=== PATIENT | male | born 1930 | race Two or more races ===

== ENCOUNTER 2018-04-13 06:24 | Inpatient (IN) | payer MEDICARE, OTHER ==
[~2018-04-13] VITALS: Ht 170.2 cm; Wt 81.3 kg
[~2018-04-13 06:24] MED LIST: CALCIUM600 MG PO; DILTIAZEM 24HR180 M1 PO; GLIMEPIRIDE4 MG PO; LASIX20 MG PO; LOSARTAN POTAS100 MG PO; METFORMIN HCL1000 MG PO; METOPROLOL SUC100 MG PO; OMEPRAZOLE20 MG PO; PIOGLITAZONE HC45 MG PO; SIMVASTATIN40 MG PO; SULFAMETHOXAZO1 EAC1 PO; TYLENOL325 MG PO; VITAMIN D1000 UNIT PO
[2018-04-13] MEDS ORDERED: LANTUS100 UNITS/ SUB-Q (07:12)
--- NOTE | 2018-04-13 11:56 | NUR ---
PT ADMITTED AND WILL REMAIN AT THE BEDSIDE, BLACKMON CATHETER PLACED BY SN KLEIN, WITH PROPULSION SYSTEMS ENGINEER AT THE BEDSIDE, 160MLS A CLOUDY YELLOW IN COLOR URINE RETURNED. LUNCH ORDER AND RECORDS MANAGER TRAY PROVIDED.
--- NOTE | 2018-04-13 13:34 | NUR ---
PT REMAINS THE BEDSIDE, PT APPEARS TO BE TRYING TO TAKE A NAP AT THIS TIME. URINE IS YELLOW AND CLOUDY IN APPERANCE.
--- NOTE | 2018-04-13 16:30 | NUR ---
PT UP TO THE BEDSIDE COMMODE WITH NO RESULTS OF A BM AT THIS TIME, PT DID WELL WITH THIS ACTIVITY. BACK TO BED.
--- NOTE | 2018-04-13 17:29 | NUR ---
PT HAS LOW GRADE FEVER AT THIS TIME, TYLENOL 500MG PO GIVEN AT THIS TIME. PT IS HAVING INCREASED CONFUSION AND YOU CAN HEAR WHEEZING WHEN STANDING NEXT TO HIM
--- NOTE | 2018-04-13 18:54 | NUR ---
PT REPOSITIONED UP INTO THE BED AT THIS TIME. REMAINS AT THE BEDSIDE.
--- NOTE | 2018-04-13 19:30 | NUR ---
FINISHED GETTING REPORT FROM AM NURSES. PATIENT RESTING QUIETLY, PULLED UP IN BED, PATIENT DENIES PAIN, AT BEDSIDE.
--- NOTE | 2018-04-13 21:56 | NUR ---
2030 WAS CALLED THE PAST 2 HOURS URINE HAD DROPPED BELOW 40MLS/HR. ORDERS WERE GIVEN FOR A 500ML IV BOLUS OF LR AND THEN TO INCREASE THE REGULAR RATE OF THE LR TO 125MLS/HR. ALL THIS HAS BEEN DONE.WATER OFFERED TO PATIENT AND SPOUSE. PATIENT'S URINE BACK UP TO 50ML/HR THE LAST HOURS.
--- NOTE | 2018-04-13 22:00 | NUR ---
pATIENT CONTINUES TO WATCH TV WITH HIS WERE OFFERED FRESH WATER AND THE WAS GIVEN A PILLOW AND WARM BLANKET.
--- NOTE | 2018-04-13 23:00 | NUR ---
PATIENT REST QUIETLY, EYES CLOSED RESPIRATIONS EVEN AND REGULER AT 20. VS STABLE.
--- NOTE | 2018-04-13 23:37 | EKG ---
[facility] [address] [facility] [place] [id number] Signed Sinus rhythm with premature supraventricular complexes Cannot rule out Inferior infarct , age undetermined Abnormal ECG No previous ECGs available Confirmed by JUSTIN MONTERO MD ([id number]) on 04/13/2018 11:37:21 PM Electronically Signed By: JUSTIN MONTERO MD 04/13/18 2337 PATIENT NAME: CRISTA JUDD Electrocardiogram DATE OF : 32 PHYSICIAN: JUSTIN MONTERO MD REPORT #: [id number] REPORT IS CONFIDENTIAL AND NOT TO BE RELEASED WITHOUT AUTHORIZATION
--- NOTE | 2018-04-13 23:55 | NUR ---
PATIENT CONTINUES TO REST QUIETLY. VS STABLE AND RETING ON THE COUCH.
--- NOTE | 2018-04-14 00:58 | NUR ---
WAS JUST HERE AND I EXPLAINED PATIENT HAS DEVELOPED AN EXPIRATORY WHEEZE THROUGHTOUT AND STARTING TO SOUND COARSE IN THE BASES. WILL ORDER A CHEST X-RAY AND WISHES RT TO COME AND HELP THE PATIENT LEARN HOW TO USE AN ACCAPELLA DEVICE. MANE IN RT WAS CALLED AND IS ON HIS WAY.
--- NOTE | 2018-04-14 01:21 | NUR ---
RT HAS X-RAY TECH HERE TO DO PORTABLE X-RAY.
--- NOTE | 2018-04-14 02:45 | NUR ---
GAVE PATIENT 500MG PO TYLENOL FOR GENERAL DISCOMFORT. NO PHONE CALL BACK ON ANY NEW ORDERS FROM THE CHEST X-RAY RESULT.
--- NOTE | 2018-04-14 06:40 | NUR ---
PATIENT HAD KIND OF A RESTLESS NIGHT. HE DID HAVE A SHORT PERIOD OF DIFFICULTY BREATHING WITH WHEEZING AND SOME CRACKLES IN THE BILAT BASES. IV LR STILL RUNNING AT 125/HR PATIENT DID TRY TO USE THE BEDSIDE COMMODE TO HAVE A BM, BUT NO RESULTS. PATIENT WAS A LITTLE SHORT OF BREATH WHEN TRY TO GET UP TO US THE COMMODE WELL. PATIENT WOULD LIKE TO TRY TO GET A SLEEPER TONIGHT IF HE COULD. IS CURRENTLLY ORDERING BREAKFAST FOR THEM BOTH.
--- NOTE | 2018-04-14 08:01 | NUR ---
Sitting up on side of bed talking with who is sitting in chair inroom with patient. Breakfast arrived, blood sugar checked. patient is alert and oriented x4. interacting well with me, answering my questions.
--- NOTE | 2018-04-14 09:19 | NUR ---
DR MONTERO IN TO SEE PATIENT, UPDATES GIVEN TO DR MONTERO.
--- NOTE | 2018-04-14 09:29 | NUR ---
BLACKMON CATHETER DC'ED AND IV FLUIDS DECREASED PER ORDERS FROM DR MONTERO.
--- NOTE | 2018-04-14 10:15 | NUR ---
PHYSICAL THERAPY HERE TO WORK WITH PATIENT.
--- NOTE | 2018-04-14 10:27 | NUR ---
up in hallway walking with PT.
--- NOTE | 2018-04-14 11:05 | NUR ---
PT UP AMBULATING IN THE [facility] IN CCU WITH Imer GAVE ENCOURAGEMENT AND PT SMILED AND THANKED ME. VISITED WITH HIS MIGUE WHO WAS IN PT'S RM. SHE NEEDED HELP WOTH TV AND I INFORMED HER THAT MASS WOULD BE ON AT 1130 HRS. SHE WAS PLEASED AND REQUESTED A VISIT FROM RODOLFO NIETO, WHICH I ARRANGED. EXTENDED A BLESSING, WILL FOLLOW NEEDED
--- NOTE | 2018-04-14 11:52 | NUR ---
SLEEPING, AWAKENS EASILY FOR BLOOD SUGAR CHECK. BACK TO SLEEP. LUNCH WAS ALREADY ORDERED BY OF PATIENT.
--- NOTE | 2018-04-14 13:03 | NUR ---
UP TO CHAIR, WAS INCONTINENT OF URINE IN BED, SPILLED WHEN TRYING TO USE URINAL. CLEANED URINE OFF THE FLOOR. PATIENT SHORT OF BREATH AND HAS SOME WHEEZING. SPO2 IS 94% UP TO CHAIR. LINENS CHANGED, BED BATH PERFORMED. PERICARE DONE.
--- NOTE | 2018-04-14 13:33 | NUR ---
THIS RN TAKING OVER PT CARE TODAY. INTRODUCTION WITH PT AND HIS WHO IS LEAVING AND GOING HOME FOR A WHILE. UPON ARRIVAL, PT IS IN BED WATCHING TV. DENIES ANY PAIN, SOB OR N/V. PT APPEARS TACHYPNEIC AND WHEEZY. INSTRUCTED PT TO COUGH AND DEEP BREATHE, WELL COMPLETED ACAPELLA EXERCISE. RECHECK OF THIS TEMP IS 97.8 ORALLY. RESP RATE IS 35. PT DENIES ANY NEEDS AT THIS TIME. CALL LIGHT WITHIN REACH. FALL PRECAUTION IN PLACE. WILL CONTINUE TO MONITOR.
--- NOTE | 2018-04-14 13:39 | NUR ---
NOTIFIED DR MONTERO ABOUT PATIENT HAVING SOME AGITATION AND CONFUSION. PATIENT BACK TO BED. REPORT GIVEN TO SAADIA GARCIA.
--- NOTE | 2018-04-14 13:40 | NUR ---
DR. MONTERO NOTIFIED THAT PT'S TEMP IS CURRENTLY 97.3 (NOON FEVER IS NO LONGER); HE STATED HE WILL CANCEL BLOOD CULTURE ORDERS. ALSO MADE SURE HE IS AWARE OF TACHYPNEA, WHEEZING AND SLIGHT CONFUSION. NOTIFIED HIM THAT I ASSISTED HIM WITH COUGH/DEEP BREATHE AND ACAPELLA. HE SAID TO CONTINUE MONITORING AND ENCOURAGE PT TO SIT UP IN BED/USE RECLINER.
--- NOTE | 2018-04-14 14:10 | NUR ---
BED ALARM WAS GOING OFF AT THIS TIME. THIS RN ENTERED ROOM TO FIND PT'S LEGS OVER THE SIDE OF THE BED RAILING. PT STATED HE NEEDED TO HAVE A BM. 2 ASSIST TO COMMODE. PT HAD EXTRA LARGE, BROWN SOFT BM. REJI CARE COMPLETED, CLEAN BRIEF PLACED ON PT, ASSISTED BACK TO BED X2 PERSON ASSIST. PT BOOSTED UP HIGH UP IN BED. BED ALARM TURNED ON. PT SITTING UP IN BED TO ASSIST WITH LUNG EXPANSION AT 65-80 DEGREES. PT'S SLIGHT CONFUSION PERSISTS. REORIENTED TO CALL LIGHT USE AND FALL PREVENTION. CALL LIGHT WITHIN REACH. WILL CONTINUE TO MONITOR.
--- NOTE | 2018-04-14 15:17 | NUR ---
PT RESTING IN BED- STILL SHOWING SOME SIGNS OF CONFUSION BUT HE'S PLEASANT AND CALM. CARDIZEM GIVEN. FRESH ICE WATER AND COFFEE GIVEN PER HIS REQUEST. NO QUESTIONS OR CONCERNS. NO PAIN. CALL LIGHT WITHIN REACH. BED ALARM AND FALL PRECAUTIONS IN PLACE. WILL CONTINUE TO MONITOR.
--- NOTE | 2018-04-14 16:39 | NUR ---
BED ALARM GOING OFF AT THIS TIME- ENTERED TO FIND PT STARTING TO GET OUT OF BED. PT STATED HE HAD TO PEE, AND AFTER STANDING WITH WITH SECOND PERSON ASSIST, PT HAD LARGE INCONTINENT EPISODE IN HIS BRIEF. PT CLEAN UP; NEW CLEAN, DRY BRIEF IN PLACE. PT UNSTEADY AND WEAK ON HIS FEET. PT DISORIENTED AND CONFUSED. VERY SOB WITH EXERTION OUT OF BED. WHEEZING THROUGHOUT ALL LUNG LOBES. AFTER PT BACK IN BED I ASSISTED PT WITH IS AND ACAPELLA EXERCISES. ENCOURAGED TO COUGH AND DEEP BREATHE. HE DENIES PAIN AND N/V. VERY PLEASANT AND COOPERATIVE. PT REORIENTED TO HIS ENVIRONMENT, BED ALARM HAS BEEN TURNED ON AGAIN. CALL LIGHT WITHIN REACH. WILL CONTINUE TO MONITOR.
--- NOTE | 2018-04-14 17:00 | NUR ---
DR. MONTERO UPDATED AT THIS TIME. PLAN FOR PT TO TRANSFER TO M/S UNIT.
--- NOTE | 2018-04-14 17:15 | NUR ---
PT'S AND 2 NEIGHBORS HAVE ARRIVED AT THE BEDSIDE AT THIS TIME. PT'S DINNER HAS ARRIVED WELL- GLUCOSE 179; 4 UNITS HUMALOG GIVEN. PT AND VISITORS ALL UPDATED ON PT CONDITION AND PLAN TO TRANSFER TO /S. CALL LIGHT WITHIN REACH. WILL CONTINUE TO MONITOR.
--- NOTE | 2018-04-14 18:15 | NUR ---
PT RESTING IN BED WITH HIS AT HIS SIDE; PLEASANT, NO C/O PAIN, NO REQUESTS. PT ATE 100% OF HIS DINNER.
--- NOTE | 2018-04-14 18:45 | NUR ---
REPORT GIVEN TO RECEIVING RN BALAJI; PT TAKEN TO M/S UNIT ROOM 120 AT THIS TIME IN THE BED WITH ALL BELONGINGS AT HIS SIDE. WENT OVER WITH PT WELL. PS VS AND CONDITION STABLE. TRANSFER COMPLETE.
--- NOTE | 2018-04-14 18:45 | NUR ---
PT ARRIVED TO FLOOR VIA STRETCHER. RESPIRATIONS EQUAL AND NONLABORED. VITAL SIGNS TAKEN. AT BEDSIDE. PT ON RA. ACAPPELLA BEING USED. FLUIDS INFUSING IN RH IV. ORIENTED TO ROOM. BWED ALARM IN PLACE. CALL LIGHT IN REACH.
--- NOTE | 2018-04-14 19:12 | NUR ---
SHIFT REPORT RECEIVED FROM DAYSHERBERTFT RN. PT RESTING IN BED, IN RROM. PT DENIES NEEDS AT THIS TIME, CALL LIGHT IN REACH. BED ALARM ON.
--- NOTE | 2018-04-14 19:30 | NUR ---
CHANGED PT'S ATTENDS WITH HELP OF CNSARKIS SALAZAR. PT DENIES FURTHER NEEDS. BED ALARM IS ON AND CALL LIGHT IS CLOSE.
--- NOTE | 2018-04-14 20:02 | NUR ---
EMPTIED PT'S URINAL, PT AND DENY FURTHER NEEDS. BED ALARM IS ON AND CALL LIGHT IS CLOSE.
--- NOTE | 2018-04-14 20:11 | NUR ---
VITALS AND I&OS DONE AND CHARTED. BEDSIDE TABLE AND CALL LIGHT IN REACH. NOTIFIED HIS RN OF TEMP. 101.5 AND OF HIGHER B\P
--- NOTE | 2018-04-14 20:18 | NUR ---
VSS. SCHEDULED CARDIZEM GIVEN (SEE EMAR). PRN TYLENOL GIVEN FOR ELEVATED TEMPERATURE OF 101.5. PT DENIES CHILLS. CALL LIGHT INREACH.
--- NOTE | 2018-04-14 20:20 | NUR ---
REPEAT ORAL TEMPERATURE RESULT OF 98.2.
--- NOTE | 2018-04-14 21:34 | NUR ---
PATIENT IN BED RESTING, IN ROOM. CALL LIGHT IN REACH. NO FRUTHER NEEDS AT THIS TIME.
--- NOTE | 2018-04-14 21:46 | NUR ---
ASSESSMENT COMPLETE. SCHEDULED MEDICATIONS GIVEN (SEE EMAR). BS RESULT OF 156, INSULIN SS AND SCHEDULED LANTUS ADMINISTERED (SEE EMAR). PT A/O X3. DENIES PAIN. ORAL TEMP OF 99.3, WILL CONTINUE TO MONITOR. PT COMPLETED ACAPELLA, ENCOURAGED TO TURN, COUGH, AND DEEP BREATH. NO FURTHER NEEDS. CALL LIGHT IN REACH, IN ROOM.
--- NOTE | 2018-04-14 23:14 | NUR ---
TEMP TAKEN PER HIS RADHA SCHAFER.
--- NOTE | 2018-04-14 23:40 | NUR ---
ORAL TEMP 98.3. WILL MONITOR.
--- NOTE | 2018-04-14 23:59 | NUR ---
PT RESTING IN BED, RR EVEN AND UNLABORED. IV FLUIDS INFUSING PER MD ORDERS, SITE WNL. CALL LIGHT IN REACH.
--- NOTE | 2018-04-15 00:30 | NUR ---
PT RESTING IN BED, EYES CLOSED. RR EVEN AND UNLABORED. PT APEARS COMFORTABLE. CALL LIGHT IN REACH. IV FLUIDS INFUSING PER MD ORDERS, SITE WNL.
--- NOTE | 2018-04-15 02:40 | NUR ---
PER RADHA SCHAFER I TOOK PT'S BLOOD PRESSURE AND HEART RATE. INFORMED HER OF RESULTS.
--- NOTE | 2018-04-15 02:45 | NUR ---
SCHEDULED CARDIZEM ADMINISTERED. BP AND HR WNL. APICAL HR 66. DISCUSSED ADMINSITERATION WITH DATA MANAGEMENT CONSULTANTRADHA THURMAN, REENA PARAMETERS IN EMAR. ASSESSMENT COMPLETE. AUDIBLE WHEEZES ON AUSCULTATION, PT DENIES SOB AND DYSPNEA AT THIS TIME. PT INCONTINENT, NEW ATTENDS IN PLACE. IV FLUIDS INFUSING, SITE WNL. CALL LIGHT IN REACH. IN ROOM WASHING PT'S FACE.
--- NOTE | 2018-04-15 04:08 | NUR ---
EMPTIED PT'S URINAL AND FRESH ICE WATER GIVEN. NEW KLEENEX BOT GIVEN WELL. BEDSIDE TABLE AND CALL LIGHT IN REACH.
--- NOTE | 2018-04-15 04:51 | NUR ---
PT INCONTINENT, NEW ATTENDS IN PLACE. ACAPELLA USED, PT INSTRUCTED TO COUGH AND DEEP BREATH. PT VERBALIZED UNDERSTANDING. CALL LIGHT IN REACH. IV FLUIDS INFUSING PER MD ORDERS, SITE WNL.
--- NOTE | 2018-04-15 05:42 | NUR ---
PT CAME FROM THE CCU TODAY. PT A/O TO SELF AND PARTIALLY TO ENVIRONMENT AND SURROUNDINGS. PT ON ADA DIET, SCHEDULED BS CHECKS WITH INSULIN SS AND LANTUS. PT ON IV FLUIDS, IV SITE WNL. PT VOIDING QS, INCONTINENT AT TIMES. PT 2PA WITH AMBULATION. INCREASED RR THIS SHIFT, MID 20'S, DENIES SOB OR DYSPNEA. USES CALL LIGHT APPROPERATELY.
--- NOTE | 2018-04-15 06:11 | NUR ---
VITALS AND I&OS DONE AND CHARTED. INFORMED HIS RN HANH OF HIGH B\P WITH THE HELP OF RADHA THURMAN WE GOT HIS ATTEND CHANGED DUE TO HIM MISSING HIS URINAL. BEDSIDE TABLE AND CALL LIGHT IN REACH.
--- NOTE | 2018-04-15 07:11 | NUR ---
REPORT RECEIVED FROM RADHA SCHAFER. PT RESTING ON LEFT SIDE IN BED. PRODUCTIVE COUGH NOTED. RR = 28. PT DENIES SOB AND STATES HE HAS NO REQUESTS AT THIS TIME. BED RAILS UP. BED ALARM ON. WILL REASSESS SOON WITH A FULL ASSESSMENT.
--- NOTE | 2018-04-15 08:06 | NUR ---
PATIENT IN BED. AND RN IN ROOM. PATIENT STANDS UP AND USE A WALKER TO SITS DOWN ON CHAIR. TWO PERSON ASSISTING. CHAIR ALARM ON. LINENS CHANGED. CALL LIGHT WITHIN REACH. NO OTHER NEEDS AT THIS TIME
--- NOTE | 2018-04-15 08:14 | NUR ---
MORNING ASSESSMENT AND MEDICATION DUE. THIS RN TO BEDSIDE. PT ASSISTED UP TO CHAIR, 2PA, FWW, PIVOT TO CHAIR. PT'S BLOOD SUGAR NOTED TO BE ON THE LOWER SIDE. SNACK PROVIDED WHILE PT WAITS FOR BREAKFAST. PT DENIES PAIN AND NASUEA. RR CONTINUES TO BE 28BPM WITH EXPIRATORY WHEEZES. PT DENIES SHORTNESS OF BREATH. PROTUCTIVE COUGH NOTED WITH WHITE SPUTUM. INFOMRED OF RESPIRATORY STATUS. REJI PAD IN PLACE. REJI CARE DONE, DEPENDS PLACED. ASSESSMENT DONE. MEDICATIONS GIVEN (SEE MAY). BREAKFAST ARRIVED. PT EATING BREAKFAST. PT ORIENTED TO ALL THIS MORNING. CHAIR ALARM ON. CALL LIGHT WITHIN REACH. AT BEDSIDE.
--- NOTE | 2018-04-15 09:03 | NUR ---
PATIENT SITTING UP IN CHAIR. IN ROOM. PATIENT STANDS UP USING A WALKER. TWO PERSON ASSISTING. PATIENT ATTEND CHANGED. PATIENT BACKS TO BED. BED ALARM ON. VITAL SIGNS AND I&O DONE. HIGH RESPIRATIONS. RN NOTIFIED. CALL LIGHT WITHIN REACH. NO OTHER NEEDS AT THIS TIME
--- NOTE | 2018-04-15 10:01 | NUR ---
THIS RN TO ROOM TO CHECK ON PT. PT RESTING IN BED AFTER WORKING WITH PHYSICAL THERAPY. WHEN ASKED IF HE NEEDS ANYTHING PT TALKS ABOUT "ALL THE DOGS" HE USED TO HAVE. PT ORIENTED TO PLACE AND SELF. RR =32 BPM, MD AWARE. BED RAILS UP, CALL LIGHT WITHIN REACH. AT BEDSIDE. BED ALARM ON.
--- NOTE | 2018-04-15 10:15 | NUR ---
THIS RN TO ROOM TO CHECK ON PT. PT ATTEMPTING TO CRAWL OUT OF BED. PT STATES "I WANT TO GO DOWN AND HAVE TEA." PT NO LONGER ORIENTED TO PLACE, DATE, OR SITUATION. RR = 32 BPM. 2PA FWW UP TO CHAIR. MD TO BEDSIDE FOR ROUNDS. PT ENCOURAGED TO USE INCENTIVE SPIROMETER. REACHES 500 ON INCENTIVE SPIROMETER. WARM TEA PROVIDED PER PT REQUEST. CHAIR ALARM ON. AT BEDSIDE. CALL LIGHT WITHIN REACH.
--- NOTE | 2018-04-15 11:00 | NUR ---
PT CALL LIGHT ON. PT'S REQUESTS STRAWS. STRAWS PROVIDED PER REQUEST. ICE WATER REFILLED. PT DENIES OTHER REQUESTS OR COMPLAINTS AT THIS TIME. CONTINUES TO BE UP TO CHAIR AND DISORIENTED TO PLACE, SITUATION AND DATE.
--- NOTE | 2018-04-15 11:30 | NUR ---
PATIENT SITTING UP IN CHAIR. IN ROOM. SHAVED PATIENT. CHAIR ALARM ON. CALL LIGHT WITHIN REACH. NO OTHER NEEDS AT THIS TIME
--- NOTE | 2018-04-15 11:45 | NUR ---
NOON ASSESSMENT AND MEDICATIONS DUE. PT BACK TO BED FOR SUPOSSITORY AND THEN BACK TO CHAIR. PT ABLE TO RECEPTION AGENT ONE MOVMENT, INCREASED STRENGTH NOTED. ASSESSMENT DONE. PT CONTINUES TO BE DISORIENTED TO SITUATION AND TIME BUT IS NOW ORIENTED TO DATE, PLACE, AND PERSON. LUNG SOUNDS NOW CLEAR IN UPPER LOBES, AUDIBLE WHEEZES CONTINUE TO BE HEARD AT TIMES. RR = 28 WHILE PT IS RESTING BUT INCREASES TO 36 WITH TRANSFER TO BED. PT USES INCENTIVE SPIROMETER FOR THIS RNGAVI TO REACH 500. MEDICATIONS GIVEN (SEE MAY). PT EATING LUNCH. NO ADDITIONAL REQUESTS OR COMPLAINTS AT THIS TIME. CHAIR ALARM ON. CALL LIGHT WIHTIN REACH. AT BEDSIDE.
--- NOTE | 2018-04-15 12:49 | NUR ---
VITAMIN B12 ARRIVED FROM [facility]. GIVEN ORDERED (SEE MAR). PT CONTINUES EATING LUNCH AND VISITING WITH FAMILY. NO REQUESTS OR COMPLAINTS. CHAIR ALARM ON. CALL LIGHT WITHIN REACH.
--- NOTE | 2018-04-15 13:37 | NUR ---
PT CALL LIGHT ON. PT REQUESTS ASSISTANCE BACK TO BED. 2PA, FWW BACK TO BED. DEPENDS WET, CHANGED, REJI CARE DONE. PT DEMONSTRATES USE OF ACAPELLA AND INCENTIVE SPIROMETER, REACHES 500 ON THE INCENTIVE SPIROMETER. PT RESTING IN BED. BED ALARM ON. BED RAILS UP. CALL LIGHT WITHIN REACH. AT BEDSIDE.
--- NOTE | 2018-04-15 14:24 | NUR ---
THIS RN TO ROOM TO CHECK ON PT. MEDICATION DUE. PT RESTING ON LEFT SIDE IN BED. OPENS EYES TO MOVEMENT IN ROOM. MEDICATION GIVEN. PT DENIES ADDITIONAL REQUESTS OR COMPLAINTS AT THIS TIME. BED RAILS UP. BED ALARM ON. AT BEDSIDE. CALMING MUSIC STATION PLAYING.
--- NOTE | 2018-04-15 14:54 | NUR ---
THIS RN TO ROOM TO ASSIST JOURNALISM INSTRUCTOR WITH BATHING PT. PT UP WITH 2PA AND FWW, TRANSFERED TO SHOWER CHAIR. PT UNSTEADY ON FEET. PT ORIENTED ONLY TO SELF AT THIS TIME. ADL'S DONE. PT BACK TO CHAIR AFTER SHOWER. WARM BLANKETS PROVIDED. CHAIR ALARM ON. CALL LIGHT WITHIN REACH. AT CHAIRSIDE.
--- NOTE | 2018-04-15 15:52 | NUR ---
PT CALL LIGHT ON. PT REQUESTS TO GET BACK TO BED. 2PA, FWW BACK TO BED. RR = 32 AND 38 WITH ACTIVITY. ACCESSORY MUSCLE USE NOTED. ABDOMEN SHOWS INCREASED DISTENTION. CRACKELS HEARD IN LOWER LOBS OF LUNGS WELL ONGOING WHEEZES. PURSED LIP BREATHING NOTED. RT CALLED FOR CONSULTATION. RTÁNGEL AGREES THAT PT APPEARS TO HAVE INCRESED DIFFICULTY BREATHING. O2 SATURATION 92-96% ON ROOM AIR. NOTIFIED. NO ORDERS AT THIS TIME. PT NOW ORIENTED TO SELF, FAMILY, AND YEAR BUT OTHERWISE DISORIENTED. PT COMPLIENT WITH CARES AND FOLLOWING COMMANDS. BED RAILS UP. BED ALARM ON. CALL LIGHT WITHIN REACH.
--- NOTE | 2018-04-15 16:45 | NUR ---
PT SALINE LOCKED PER MD ORDER. ALCOHOL CAP APPLIED. PT RESTING ON LEFT SIDE. BED RAILS UP. CALL LIGHT WITHIN REACH. AT BEDSIDE. BED ALARM ON.
--- NOTE | 2018-04-15 17:57 | NUR ---
MEDICATION DUE. PT EATING DINNER WITH 'S ASSISTANCE. DEPENDS WET. PT UP TO STAND. DEPENDS CHANGED. PT BACK TO BED. PT CONTINUES TO HAVE WET BREATH SOUNDS. MD AWARE. BED RAILS UP. CALL LIGHT WITHIN REACH. BED ALARM ON.
--- NOTE | 2018-04-15 18:39 | NUR ---
PT HERE FOR SEPSIS RELATED TO A UTI. 2PA WITH FWW, PT CAN BE IMPULSIVE, BED/CHAIR ALARM. PT STRONGER TODAY AND ABLE TO WALK 1 LAP WITH PHYSICAL THERAPY. PT UP TO CHAIR MOST OF THE DAY. WORSENING ABDOMINAL EDEMA, LUNGS SOUNDS, AND WORK OF BREATHING TODAY. MD AWARE, IV FLUIDS DC'D. BLOOD SUGAR CHECKS WITH SLIDING SCALE INSLUIN. ACCAPELLA AND INCENTIVE SPIROMETER AT BEDSIDE, PT USING FREQUENTLY. PT UP TO SHOWER TODAY. PT DOES NOT USE CALL LIGHT, VERY INVOLVED WITH CARES.
--- NOTE | 2018-04-15 19:03 | NUR ---
PTS DAUGHTER GASTON AND DORIS WELL DAUGHTER YAA CALLED AND UPDATED REGARDING PT CONDITION. ALL PARTIES STATE THEY ARE GREATFUL FOR THE UPDATE AND WOULD LIKE TO TALK TO CASE MANAGEMENT ON TUESDAY. ALL PARTIES VERBALIZE UNDERSTANDING OF PTS PLAN OF CARE AND STATE THEIR QUESTIONS HAVE BEEN ANSWERED.
--- NOTE | 2018-04-15 19:15 | NUR ---
SHIFT REPORT RECEIVED FROM DAYSHIFT RN AT BEDSIDE. PT AWAKE IN BED, MILDLY LABORED RESPIRATIONS NOTED, PT DENIES SOB. WHEN ATTEMPTED TO USE IS, PT UNABLE TO CORRECTLY PLACE MOUTH AT CORRECT LOCATION. PT CORRECTED AND IS USED. PT SL. IN ROOM WITH PT. NO FURTHER NEEDS NOTED. CALL LIGHT IN REACH, BED ALARM ON.
--- NOTE | 2018-04-15 20:54 | NUR ---
ASSESSMENT COMPLETE. DR RAZO IN ROOM WITH PT. SCHEDULED MEDICATIONS GIVEN (SEE EMAR). BS RESULT OF 115. ASKED DR RAZO IF SHE WOULD LIKE PT TO RECEIVE SCHEDULED 35 UNITS OF LANTUS, VERBAL ORDER READ BACK TO DECREASE TONIGHTS LANTUS DOSE TO 30 UNITS. VSS. ORAL TEMP 99.1, DISCUSSED WITH DR RAZO IF SHE WOULD LIKE PT TO RECEIVE PRN TYLENOL, VERBAL ORDER READ BACK TO GIVE PT PRN TYLENOL. NO FURTHER ORDERS. PT A/O ONLY TO SELF, PT STATES, "WE'RE IN [place]". RR 25, PT DENIES SOB AND CHEST PAIN, O2 SAT 94% ON RA. DR RAZO MADE AWARE OF FINDINGS, NO NEW ORDERS. URINAL EMPTIED, I&O'S RECORDED. NO FURTHER NEEDS, CALL LIGHT IN REACH. BED ALARM ON. IN ROOM.
--- NOTE | 2018-04-15 20:55 | NUR ---
ASSISTED BOOSTING THE PT IN BED, PRIMARY RN IS IN ROOM WITH PT.
--- NOTE | 2018-04-15 21:41 | NUR ---
ADMINISTERED LOPRESSOR PER REQUEST OF HANH GARCIA. PT DENIES FURTHER NEEDS AT THIS TIME. CALL LIGHT IS CLOSE AND BED ALARM IS ON.
--- NOTE | 2018-04-15 22:01 | NUR ---
PT SITTING AT EDGE OF BED SET ALARM OFF TRYING TO GO TO THE RESTROOM. HIS IS SLEEPING ON THE COUCH. HE WAS VERY UNSTEADY ON HIS FEET WITH 2PA AND FWW. HE IS BACK IN BED WITH ALARM ON AND REMINDED PT TO USE THE CALL LIGHT.
--- NOTE | 2018-04-16 00:33 | NUR ---
THIS RN TO ANSWER CALL LIGHT. PT'S ASKING FOR SOMETHING TO HELP PT SLEEP PT IS TALKING. THIS RN ASSESSED PT. PT RESTING IN BED, EYES CLOSED, NO RESPIRATORY DISTRESS NOTED. HR 76, O2 SAT 94% RA. PT APPEARS COMFORTABLE AND TALKING IN SLEEP. OFFERED EAR PLUGS TO HELP PROMOTE SLEEP, PT'S KINDLY REFUSED. NO OTHER NEEDS. CALL LIGHT IN REACH, BED ALARM ON.
--- NOTE | 2018-04-16 02:15 | NUR ---
SCHEDULED CARDIZEM ADMINISTERED (SEE EMAR). VSS. ASSESSMENT COMPLETE. PT INCONTINENT, PARTIALLY VOIDED IN URINAL. WITH HELP FROM JUNE ASPNET DEVELOPER, PT CHANGED. PT A/O TO SELF, PLACE, AND DATE. DENIES NEEDS. WARM BLANKET GIVEN TO PT'S . BED ALARM ON, CALL LIGHT IN REACH.
--- NOTE | 2018-04-16 05:38 | NUR ---
PT INCONTINENT, WITH HELP FROM JUNE ALBERTO. PT CHANGED, NEW ATTENDS AND BED CHANGE COMPLETE. ACCAPELLA USED BY PT. NO FURTHER NEEDS. SLEEPING ON COUCH. BED ALRM ON, CALL LIGHT IN REACH.
--- NOTE | 2018-04-16 05:39 | NUR ---
VITALS AND I&OS DONE AND CHARTED. WITH THE HELP OF RADHA SCHAFER WE DID A COMPLETE BED CHANGE AND CHANGED HIS ATTEND INCONTINENT OF URINE. REPOSITIONED PT IN BED. BED ALARM SET. BEDSIDE TABLE AND CALL LIGHT IN REACH. PT NEEDS NOTHING MORE AT THIS TIME.
--- NOTE | 2018-04-16 07:10 | NUR ---
RECIEVED BEDSIDE REPORT FROM RADHA SCHAFER. PT SLEEPING SOUNDLY. ASLEEP ON COUCH. PERSONAL SUPPLIES AND CALL LIGHT IN REACH.
--- NOTE | 2018-04-16 08:04 | NUR ---
ALBERTO WILSON NOTIFIED THIS RN THAT PT'S BG CHECK WAS 43. PT AWAKE, ALERT. NOTIFIED DR. RAZO, ASKED HER TO PLACE ORDER FOR D50, NONE WAS ON PT'S EMAR. PT GIVEN OJ 8 OUNCES, WHICH HE DRANK, AND PT IS NOW EATING BREAKFAST. DENIES ANY SHAKING, DIZZINESS, OR LIGHTHEADEDNESS.
--- NOTE | 2018-04-16 08:15 | NUR ---
PT HAD A GOOD NIGHT. PT A/O TO SELF, SOMETIMES TO DATE AND LOCATION. PT ON ADA DIET, SCHEDULED 35 UNITS LANTUS DECREASED TO [address] RAZO. VSS, PT ON RA, AUDIBLE WHEEZES NOTED. PT 2PA W/ AMBULATION W/ FWW. PT SALINE LOCKED, IV SITE WNL. BED ALARM ON FOR SAFETY.
--- NOTE | 2018-04-16 08:46 | NUR ---
PT FINISHED WITH BREAKFAST, BG RECHECKED, 109. PT DENIES FEELING LIGHTHEADED OR DIZZY, DENIES FEELING SHAKY. UP TO RECLINER. AT SIDE. PERSONAL SUPPLIES AND CALL LIGHT IN REACH.
--- NOTE | 2018-04-16 12:33 | NUR ---
PT SITTING UP IN CHAIR. DENIES SHORTNESS OF BREATH. DENIES PAIN. AT SIDE. DENIES NEEDS. IS EATING LUNCH AT THIS TIME. PERSONAL SUPPLIES AND CALL LIGHT IN REACH.
--- NOTE | 2018-04-16 13:23 | NUR ---
PT UP TO BATHROOM WITH FWW WITH 2 PERSON ASSIST. PT UNSTEADY ON FEET. SITTING UP ON TOILET, AT SIDE, PT ATTEMPTING TO VOID.
--- NOTE | 2018-04-16 15:34 | NUR ---
DR. RAZO IN TO SEE PT, SPOKE WITH PT AND PT'S , ASSESSED PT. DISCUSSED PLAN OF CARE. QUESTIONS ASKED AND ANSWERED. PT AND VERBALIZED UNDERSTANDING.
--- NOTE | 2018-04-16 17:17 | NUR ---
PT UP, AMBULATED IN HALLWAYS, AROUND LARGE LOOP X 1. AMBULATED WITH 2 PERSON ASSIST WITH FWW, UNSTEADY ON FEET, COORDINATION DIFFICULTY NOTED. PT CONSITANTLY STEERED WALKER TO THE LEFT RATHER THAN STRAIGHT, REQUIRED VERBAL AND PHYSICAL CUES TO STRAIGHTEN WALKER DURING AMBULATION. PT NOW IN ROOM, SITTING UP IN RECLINER, CHAIR PRESSURE ALARM ON UNDER HIM, PERSONAL SUPPPLIES AND CALL LIGHT IN REACH.
--- NOTE | 2018-04-16 18:21 | NUR ---
PT UP WITH FWW WITH 1-2 PERSON ASSIST. UNSTEADY ON FEET. WORKED WITH PHYSICAL THERAPY THIS SHIFT. AMBULATED IN HALLS WITH NURSING STAFF. PT ALERT, ORIENTED TO SELF, SURROUNDINGS, YEAR. FORGETFUL AT TIMES. BED ALARM AND CHAIR ALARM IN USE WHEN STAFF NOT AT PT'S SIDE. PT ON 1800 CALORIE ADA DIET, APETITE GOOD. BG THIS AM LOW, 43, REQUIRED 2 GLASSES OF ORANGE JUICE, AND BG UP TO 109 AT SECOND RECHECK. PT DENIED S/S HYPOGLYCEMIA DURING THIS TIME. NO FURTHER EPISODES OF LOW BG THIS SHIFT. RESPIRATORY RATE 20-24, WHEEZES AUSCULTATED THROUGHOUT LUNG PRASAD, DIMINISHED IN BASES. PT ON RA, OXYGEN SATURATION LEVEL IN 90s. AT BEDSIDE THROUGHOUT DAY.
--- NOTE | 2018-04-16 19:00 | NUR ---
SHIFT REPORT RECEIEVED FROM DAYSHIFT RADHA CARRENO. PT RESTING IN BED WITH EYES CLOSED. PT APPEARS COMFORTABLE, EVEN RESPIRATIONS NOTED. IN ROOM WITH PT AWAITING RIDE TO GO HOME FOR THE EVENING. CALL LIGHT IN REACH, BED ALARM ON.
--- NOTE | 2018-04-16 21:10 | NUR ---
WITH THE HELP OF RADHA BADILLO WE HELPED PT TO THE BATHROOM AND BACK TO BED. DID A COMPLETE BED CHANGE. BEDSIDE TABLE AND CALL LIGHT IN REACH. BED ALARM ON
--- NOTE | 2018-04-16 21:40 | NUR ---
THIS RN INFORMED BY LIANA DOMINGUEZ OF PT'S 32 RR. THIS RN IN ROOM TO ASSESS PT. THIS RN COUNTED PT'S RR, RESULT 29. INTERMITTENT AUDIBLE WHEEZES HEARD, PT DENIES SOB AND CHEST PAIN AT THIS TIME. PT USED IS AND ACAPELLA SUCCESSFULLY. PT INSTRUCTED AND EDUCATED TO COUGH, DEEP BREATH, AND TURN WHILE AWAKE. PT VERBALIZED UNDERSTANDING AND WAS ABLE TO RECALL 2/3 INSTRUCTIONS. AFTER INTERVENTIONS, RR 25. QA TEST ANALYST ANDMAURICIO AWARE. WILL CONTINUE TO MONITOR, CALL LIGHT IN REACH. BED ALARM ON. SCHEDULED MEDICATIONS GIVEN (SEE EMAR).
--- NOTE | 2018-04-16 23:30 | NUR ---
HELPED PT WITH URINAL. CHANGED HIS ATTEND INCONTINENT OF URINE. BED ALARM ON. BEDSIDE TABLE AND CALL LIGHT WITHIN REACH.
--- NOTE | 2018-04-17 01:10 | NUR ---
THIS RN TO ANSWER CALL LIGHT. PT REQUESTING ASSISTANCE TO VOID. PT PARTIALLY INCONTINENT, REMAINING URINE IN URINAL. PT REPOSITIONED IN BED WITH HELP FROM JUNE ALBERTO. FELIX AND IS USED. PT DENIES CHEST PAIN AND DIFFICULTY BREATHING. COURSE WHEEZES AUSCULTATED. WILL MONITOR. CALL LIGHT IN REACH, BED ALARM ON. PT APPEARS COMFORTABLE.
--- NOTE | 2018-04-17 01:25 | NUR ---
rounding on pt. pt awake using is. denies needs at this time. call light in reach.
--- NOTE | 2018-04-17 01:46 | NUR ---
VITALS DONE PER RADHA SCHAFER. CHARTED AND INFORMED RN OF B\P AND RESP. BEDSIDE TABLE AND CALL LIGHT IN REACH.
--- NOTE | 2018-04-17 03:00 | NUR ---
ASSESSMENT COMPLETE. O2 SAT 92% ON RA. PT DENIES SOB OR DYSPNEA, RR 26. PT INSTRUCTED TO COUGH AND USE ACAPELLA. PT THEN INSTRUCTED TO DEEP BREATH. O2 SAT NOW 94% ON RA. PT A/O TO SELF AND PLACE, BUT NOT ENTIRELY TO SURROUNDINGS. PT BELIEVED THIS RN TO BE "TATI". PT REORIENTED TO NURSING STAFF. NO FURTHER NEEDS AT THIS TIME. PT REPSOITIONED SELF IN BED. CALL LIGHT IN REACH, BED ALARM ON.
--- NOTE | 2018-04-17 03:56 | NUR ---
reported by resident caregiver june of pt's bs result of 49. this rn in room with scrap charger. pt given 50 mls of dextrose 50 administered by scrap charger temo. When asked if pt is dizzy or if room is spinning, pt hesitated and stated "sometimes". pt denies hunger, sweatiness, shakiness. call light in reach, bed alarm on.
--- NOTE | 2018-04-17 04:30 | NUR ---
BS NOW 168, EDGE BONDERRADHA GARCIA AWARE. NO NEW CONCERNS. PT APPEARS COMFORTABLE AND DENIES QUESTIONS OR CONCERNS. CALL LIGHT IN REACH, BED ALARM ON.
--- NOTE | 2018-04-17 06:05 | NUR ---
PT A/O TO SELF, PLACE, AND EVENT AT TIMES. BED ALARM ON FOR SAFETY. PT 1-2PA W/ FWW. PT ON ADA DIET. PM BS CHECK, 201, 4 UNITS LISPRO AND SCHEDULED 20 UNITS LANTUS GIVEN. 0400 BS WAS 49, DEXTROSE 50 MLS AND 1/2 CUP OJ GIVEN. RECHECK BS 168. PT ON ADA DIET, NO NAUSEA, BOWEL TONES ACTIVE. PT SALINE LOCKED. RR MID 20'S-32, INCREASED IN LUNG COARSNESS, INTERMITTENT PRODUCTIVE COUGH. PT DENIED SOB. VSS. PT INCONTINENT.
--- NOTE | 2018-04-17 06:36 | NUR ---
DR RAZO NOTIFIED VIA PERSONAL MESSAGE OF PT'S BS RESULT OF 49. 50 MLS DEXTROSE AND OJ GIVEN. REPEAT BS RESULT OF 168.
--- NOTE | 2018-04-17 07:12 | NUR ---
RECIEVED BEDSIDE REPORT FROM RADHA SCHAFER. PT SITTING UP IN RECLINER. DENIED NEEDS. PERSONAL SUPPLIES AND CALL LIGHT IN REACH.
--- NOTE | 2018-04-17 07:44 | NUR ---
BG 93. PT SITTING UP IN RECLINER. DENIED NEEDS AT THIS TIME.
--- NOTE | 2018-04-17 08:37 | NUR ---
PT SITTING UP IN RECLINER, USED INSENTIVE SPIROMETER, AND ACAPELLA. GOT I.S. UP TO 700. ENCOURAGED PT TO DEEP BREATH AND COUGH, WHICH PT DID. PT HAS A COARSE CONGESTED COUGH, DID NOT PRODUCE ANYTHING WITH COUGH AT THIS TIME. PT GIVEN FALL PREVENTION EDUCATION. HAS CHAIR ALARM ON. REMINDED PT TO CALL FOR ASSISTANCE. CALL LIGHT AND PERSONAL SUPPLIES IN REACH. PT ATE 100% OF BREAKFAST. DENIED NEEDS AT THIS TIME.
--- NOTE | 2018-04-17 09:35 | NUR ---
PT IS EXPECTING TO RETURN HOME UPON DC. STATES MY CAN CARE FOR ME.
--- NOTE | 2018-04-17 09:50 | NUR ---
PT UP WITH FWW WITH GAIT BELT, WITH 2 PERSON ASSIST, AMBULATED IN HALLWAY, AROUND LARGE LOOP X 1. PT UNSTEADY, UNABLE TO STEER WALKER STRAIGHT WITHOUT VERBAL AND PHYSICAL CUES. PT NOW BACK IN RECLINER, SITTING UP, PERSONAL SUPPLIES AND CALL LIGHT IN REACH. CHAIR ALARM ON.
--- NOTE | 2018-04-17 11:01 | NUR ---
PT UP, AMBULATING IN HALLWAYS WITH BETO, PHSYICAL THERAPIST, USING FWW AND GAIT BELT. TOLERATING WELL THUS FAR. IN PT'S ROOM.
--- NOTE | 2018-04-17 11:26 | NUR ---
CALLED AND SPOKE WITH PT DAUGHTER YAA @[phone] WE TALKED FOR ABOUT 30 MINUTES WITH ME EXPLANING ABOUT PT BEING ADMITTED TO SNFS AND WHAT MEDICARE COVERS AND WHAT THE PT IS RESPONSIBLE FOR. WE ALSO TALKED ABOUT GETTING THEM SIGNED UP FOR MEDICAID IF NECESSARY. WE TALKED ABOUT HAVING A CARE CONFERENCE WITH DR RAZO TO DISCUSS WHAT THE NEXT STEPS WERE. YAA IS AGREEABLE TO THIS AND WOULD LIKE TO BE CONFERENCED IN ON THIS MEETING. SHE DID TELL ME SHE WILL EMAIL A COPY OF THE DURABLE POWER OF FIBERGLASS BOAT FINISHER AND POWER OF FIBERGLASS BOAT FINISHER FOR HEALTH SO THEY COULD BE ON THE PT CHART.
--- NOTE | 2018-04-17 13:03 | NUR ---
PT SITTING UP IN BED, RESTING WITH EYES CLOSED. PERSONAL SUPPLIES AND CALL LIGHT IN REACH.
--- NOTE | 2018-04-17 13:05 | NUR ---
CARE CONFERENCE PRESENT: PT, MIGUE PT , DAUGHTER YAA VIA PHONE STAFF: DR RAZO, MYSELF FROM CASE MANAGEMENT. DR RAZO DISCUSSED WITH ALL PRESENT ABOUT PT CONDITION AND THAT WE ARE SEEING IMPROVEMENT BUT HE IS HAVING CONFUSION AND UNABLE FOR HIS TO CARE FOR AT THIS TIME SHE IS HAVING ISSUES OF HER OWN. WE TALKED ABOUT OPTIONS OF THE SNF, AND THEY WOULD LIKE THE ONE [place] CALLED [facility], THAT WAY PT CAN VISIT WITH HIM. ALSO TALKED ABOUT MAKING SURE TO ORDER PT, OT, AND ST FOR COGNITIVE BENEFITS. AND DAUGHTER AGREE THIS WILL BE GOOD. DENY FURTHER QUESTIONS AT THIS TIME.
--- NOTE | 2018-04-17 13:43 | NUR ---
PT UP TO BATHROOM WITH FWW, GAIT BELT, AND 1 PERSON ASSIST. UNSTEADY ON FEET, BUT MORE STEADY THAN YESTERDAY. PT VOIDED 200 ML CLEAR YELLOW URINE IN HAT, AND HAD A MEDIUM SOFT BM. PT THEN BACK TO RECLINER, CHAIR ALARM ON, PERSONAL SUPPLIES IN REACH, AND PT'S AT SIDE.
--- NOTE | 2018-04-17 13:43 | NUR ---
PT WAS SITTING IN CHAIR, WAVED AND TRIED TO SPEAK, BUT I COULD NOT MAKE OUT ANYTHING HE SAID. I ENCOURAGED HIM TO REMAIN SEATED-HE KEPT TRYING TO GET UP OUT OF RESPECT. EXTENDED A BLESSING, WILL FOLLOW NEEDED
--- NOTE | 2018-04-17 14:45 | NUR ---
CHART NOTES FAXED TO [facility] AFTER SPEAKING WITH [place]. THESE INCLUDED FACE SHEET, ER NOTES AND SUMMARY, H AND P, PROG NOTES, IMAGING, LABS, PT AND OT EVALS AND NOTES. RECIEVED FAX CONFIRMATION BACK.
--- NOTE | 2018-04-17 17:59 | NUR ---
PT UP WITH 1-2 PERSON ASSIST WITH FWW AND GAIT BELT. WORKED WITH PHYSICAL THERAPY. ORIENTED TO SELF, PLACE, AND YEAR. DISORIENTED TO EVENTS, DAY, MONTH, AND IS CONFUSED AND FORGETFUL AT TIMES. SALINE LOCK TO LEFT HAND, 22 G IV PLACED THIS SHIFT. PT'S LUNGS COARSE, DIMINISHED IN BASES, AND PT CONTINUES TO HAVE A PRODUCTIVE, CONGESTED SOUNDING COUGH. PT USED INSENTIVE SPIROMETER, BUT NOT VERY EFFECTIVLY, GOT HIGH 700 AT BEST. ALSO USED ACAPELLA AND DID DEEP BREATHING AND COUGHING WHEN PROMPTED THROUGHOUT SHIFT, WELL INDEPENDANTLY. AT PT'S SIDE MOST OF SHIFT. USED CHAIR AND BED ALARM AT ALL TIMES EXCEPT WHEN NURSING STAFF OR PHYSICAL THERAPY STAFF WITH PT. ABDOMEN REMAINS FIRM, DISTENDED, BUT PT PASSING FLATUS, HAD A MEDIUM SOFT BM, AND BOWEL TONES ACTIVE X 4 QUADRANTS. ON 1800 ADA DIET, ACCUCHECKS AT MEAL TIMES, NO EPISODES OF HYPOGLYCEMIA THIS SHIFT.
--- NOTE | 2018-04-17 18:51 | NUR ---
RECIEVED EMAIL FROM PT DAUGHTER WITH DURABLE POWER OF LAB COURIER PAPERS AND POWER OF LAB COURIER FOR HEALTH CARE FORMS. PLACED IN PT CHART.
--- NOTE | 2018-04-17 19:20 | NUR ---
RECEIVED REPORT FROM DAY SHIFT RN. PATIENT IS RESTING IN RECLINER. PATIENT HAS CHAIR ALARM IN PLACE. PATIENTS IS IN THE ROOM. NO NEEDS NOTED. CALL LIGHT IN REACH.
--- NOTE | 2018-04-17 20:30 | NUR ---
PATIENT ASSESMENT COMPLETED. PATIENT IS RESTING IN BED. PATIENTS IS ASLEEP ON THE COUCH. PATIENTS BS CHECKED AND MEDICATION GIVEN PER ORDER. PATIENT DENIES ANY PAIN. PATIENT COMPLETED X3 ON THE IS AND ACAPELLA. PATIENT DENIES ANY NEEDS. CALL LIGHT IN REACH. BED ALARM ON FOR SAFETY.
--- NOTE | 2018-04-18 00:11 | NUR ---
PATIENT ASSISTED TO THE RESTROOM BY ANNABEL DOMINGUEZ. PATIENT IS A 1PA W/FWW. PATIENT WAS ABLE TO VOID. PATIENT BACK IN BED RESTING. ALARM ON FOR SAFETY. NO NEEDS NOTED. CALL LIGHT IN REACH.
--- NOTE | 2018-04-18 02:20 | NUR ---
PATIENT ASSISTED TO THE RESTROOM A SBA W/FWW. PATIENT TOLERATED AMBUATION WELL, BUT IS UNSTEADY AT TIMES. PATIENT WAS INCONTINET AND ABLE TO VOID. PATIENTS BS CHECKED AND BS WAS NOTED TO BE LOW. PATIENT DENIES ANY SYMPTOMS OF LOW BS, AND SHOWS NO SIGNS OF LOW BS. PATIENT GIVEN HALF CUP APPLE JUICE, DENIES A SNACK. DEXTROSE PER ORDER GIVEN. PATIENTS STATED "PATIENT IS ALWAYS LOW IN THE MORNING, AND I GIVEN HIM JUICE". WILL RECHECK BS IN 30 MINUTES. PATIENT IS SITTING ON THE EDGE OF THE BED VISITING WITH AND DRINKING HIS JUICE. CALL LIGHT IN REACH.
--- NOTE | 2018-04-18 02:59 | NUR ---
PATIENTS BS RECHECKED AND FOUND TO BE WNL. PATIENT IS RESTING IN BED. PATIENT PROVIDED WITH WARM BLANKET. NO FURTHER NEEDS NOTED. CALL LIGHT IN REACH. ALARM ON FOR SAFETY.
--- NOTE | 2018-04-18 04:44 | NUR ---
PATIENT IS RESTING IN BED WITH EYES CLOSED, RR 17. CALL LIGHT IN REACH. ALARM ON FOR SAFETY.
--- NOTE | 2018-04-18 05:02 | NUR ---
PATIENT RESTED WELL THROUGHOUT THE SHIFT. PATIENT IS ON AN ADA DIET, TOLERATING IT WELL. NO COMPLAINTS OF NAUSEA. PATIENT IS A 1PA W/FWW. PATIENT IS FORGETFUL AT TIMES. BED ALARM ON FOR SAFETY. PATIENT IS OREINTED TO SELF AND . PATIENT IS ABLE TO STATE THAT HE IS IN THE HOSPITAL. PATIENT REQUIRES REORIENTED TO TIME, DATE, AND SURROUNDINGS. PATIENT HAD AN EPISODE OF LOW BS THAT WAS RESOLVED WITH HYPOGLYCEMIA PROTOCOL. PATIENT FOLLOWS DIRECTIONS WELL. PATIENT IS SL. PATIENT DOES NOT USE CALL LIGHT. PATIENT IS INCONTINENT AT TIMES, ATTEND IN PLACE.
--- NOTE | 2018-04-18 05:28 | NUR ---
PATIENT IS RESTING IN BED. PATIENTS VITALS TAKEN AND RECORDED. PATIENTS ATTEND CHANGED. PATIENT DENIES ANY NEEDS AT THIS TIME. REMAINS RESTING ON THE COUCH. NO FURTHER NEEDS NOTED. CALL LIGHT IN REACH. BED ALARM REMAINS ON FOR SAFETY.
--- NOTE | 2018-04-18 07:15 | NUR ---
RECIEVED BEDSIDE REPORT FROM RADHA BADILLO. PT IN BED, AT BEDSIDE. PT DENIED NEEDS. PERSONAL SUPPLIES AND CALL LIGHT IN REACH. BED ALARM ON.
--- NOTE | 2018-04-18 08:59 | NUR ---
PT ATE 100% OF BREAKFAST, AND IS NOW GETTING INTO SHOWER WITH ASSISTANCE FROM ALBERTO MONTIEL.
--- NOTE | 2018-04-18 09:34 | NUR ---
PT FINISHED SHOWER, HAD SMALL BM, AND IS NOW IN BED. BED ALARM ON. PERSONAL SUPPLIES AND CALL LIGHT IN REACH, AT SIDE.
--- NOTE | 2018-04-18 10:57 | NUR ---
PT SLEEPING SOUNDLY IN BED, AT BEDSIDE. PERSONAL SUPPLIES AND CALL LIGHT IN REACH.
--- NOTE | 2018-04-18 11:22 | NUR ---
PT IN BED, AT BEDSIDE, PT AND SPEAKING WITH THE DEACON OF THEIR SABIANIST, WHO IS IN ROOM AT THIS TIME. PT HAS PERSONAL SUPPLIES AND CALL LIGHT IN REACH.
--- NOTE | 2018-04-18 12:12 | NUR ---
PT SITTING UP IN RECLINER. DR. RAZO IN TO SEE PT. DISCUSSED PLAN FOR DISCHARGE TO [facility], WITH PT AND PT'S . QUESTIONS ASKED AND ANSWERED. PT AND VERBALIZED UNDERSTANDING.
[2018-04-18] MEDS ORDERED: VITAMIN B-121000 MCG PO (12:23)
--- NOTE | 2018-04-18 12:32 | NUR ---
RADHA HAMM HAD PHONE CONV WITH PT'S DAUGHTER. SHE IS CONCERNED ABOT HER MOTHER AND REQUESTED RESTORATION SPIRITUAL CARE. I HAD RODOLFO NIETO CHECK IN AND CALLED TO HAVE DEACON CHANCE BRANCH FROM [facility] COME TO VISIT. HE WAS BY YESTERDAY. WILL CONTINUE TO FOLLOW NEEDED
--- NOTE | 2018-04-18 12:49 | NUR ---
PT SITTING UP IN RECLINER, ATE 75% OF LUNCH, TOLERATED WELL. PERSONAL SUPPLIES AND CALL LIGHT IN REACH. IN ROOM.
[2018-04-18] MEDS ORDERED: HUMALOG100 UNITS/ IV (12:54)
--- NOTE | 2018-04-18 14:38 | NUR ---
REPORT CALLED TO RADHA POOLE AT [facility]. PRINTED DISCHARGE PACKET SENT WITH YOLANDA, HIGH SCHOOL MUSIC DIRECTOR AT [facility] WHEN SHE CAME TO GET PT FOR TRANSPORT TO [facility]. QUESTIONS ASKED AND ANSWERED, ZULEMA VERBALIZED UNDERSTANDING. DENIED FURTHER QUESTIONS. STATED THAT HE WOULD CALL IF HE HAD FURTHER QUESTIONS LATER.
== END 2018-04-18 14:20 | DRG 871 ==
LOC: ED 06:24 → MS 09:55 → CCU 09:55 → MS 04-14 18:56
PROVIDERS: ADMIT Internal Medicine
DX: A41.50 Gram-negative sepsis, unspecified (principal); G93.41 Metabolic encephalopathy; N30.00 Acute cystitis without hematuria; N17.9 Acute kidney failure, unspecified; I47.1 Supraventricular tachycardia; E11.65 Type 2 diabetes mellitus with hyperglycemia; I10 Essential (primary) hypertension; K21.9 Gastro-esophageal reflux disease without esophagitis; E78.5 Hyperlipidemia, unspecified; D50.9 Iron deficiency anemia, unspecified; Z66 Do not resuscitate; Z87.891 Personal history of nicotine dependence; Z79.4 Long term (current) use of insulin; Z79.899 Other long term (current) drug therapy; Z88.5 Allergy status to narcotic agent; Z88.2 Allergy status to sulfonamides; Z88.8 Allergy status to other drugs, medicaments and biological substances
CPT/HCPCS: 36415; 51701; 70450; 71045; 80048; 80053; 81001; 82607; 82728; 82746; 83036; 83540; 83605; 83735; 84466; 84484; 85025; 87040; 87077; 87088; 87186; 93005; 93010; 97110; 97116; 97162; 99285-25; J0696; J1650; J1815; J3475; J7030; J7120

== ENCOUNTER 2019-08-11 09:10 | Emergency (ER) | payer MEDICARE, OTHER ==
[~2019-08-11] VITALS: Ht 170.2 cm; Wt 81.3 kg
[~2019-08-11 09:10] MED LIST changes: +HUMALOG100 UNITS/ IV; +LANTUS100 UNITS/ SUB-Q; +VITAMIN B-121000 MCG PO
--- OUTSIDE RECORDS SUMMARY | 2019-08-11 09:12 | XMS ---
PreManage Notification: CRISTA JUDD Security Tire Mounter Events No recent Security Events currently on file CRITERIA MET - History of Sepsis Dx CARE PROVIDERS There are no care providers on record at this time. Michaela has no Care Guidelines for this patient. [place] VISIT COUNT (12 MO.) 1 DAVIE Mejia TOTAL 1 NOTE: Visits indicate total known visits. ED/C VISIT TRACKING (12 MO.) 08/11/2019 09:11 [facility] [place] TYPE: Emergency COMPLAINT: - BLOOD SUGAR PROBLEM INPATIENT VISIT TRACKING (12 MO.) No inpatient visits to display in this time frame [email or web address]
[2019-08-11] MEDS ORDERED: METFORMIN HCL1000 MG PO (09:32)
[2019-08-11] MEDS ORDERED: LANTUS100 UNITS/ SUB-Q (09:32)
[2019-08-11] MEDS ORDERED: LOSARTAN POTAS100 MG PO (09:32)
[2019-08-11] MEDS ORDERED: KEFLEX500 MG PO (11:03)
== END 2019-08-11 11:20 | disposition home or self-care (01) ==
LOC: ED 09:10
DX: E11.65 Type 2 diabetes mellitus with hyperglycemia (principal); N39.0 Urinary tract infection, site not specified; I10 Essential (primary) hypertension; Z87.891 Personal history of nicotine dependence; Z88.2 Allergy status to sulfonamides; Z88.5 Allergy status to narcotic agent; Z88.6 Allergy status to analgesic agent; Z79.4 Long term (current) use of insulin; Z79.899 Other long term (current) drug therapy
CPT/HCPCS: 80053; 81001; 85025; 99284

== ENCOUNTER 2020-05-07 04:27 | Emergency (ER) | payer MEDICARE, OTHER ==
[~2020-05-07] VITALS: Ht 170.2 cm; Wt 81.3 kg
[~2020-05-07 04:27] MED LIST changes: +KEFLEX500 MG PO
--- OUTSIDE RECORDS SUMMARY | 2020-05-07 04:30 | XMS ---
PreManage Notification: CRISTA JUDD Security Business Administration Teacher Events No recent Security Events currently on file CRITERIA MET - [facility] - Has Care Guidelines - History of Sepsis Dx CARE PROVIDERS TARUN JACINTO Internal Medicine 08/13/2019-Current PHONE: [phone] Michaela has no Care Guidelines for this patient. Care History Medical/Surgical 08/13/2019 [facility] - Patient is currently established with [facility]. If patient is seen in the ED during business hours. Please contact CHWs at [facility]. Care Recommendation: If this patient has had 5 or more Emergency Department visits in the last 12 months.\T\nbsp; Patient will require education on the scope and purpose of the ED as an acute care provider not a Primary Care Provider and should not be utilized for chronic conditions.\T\nbsp; These are guidelines and the provider should exercise clinical judgment when providing care. 08/13/2019 [facility] Patient has ED follow up apt 08/16/2019 at 11:00 am with REN Machuca. [place] VISIT COUNT (12 MO.) [address] [facility] TOTAL 2 NOTE: Visits indicate total known visits. ED/UCC VISIT TRACKING (12 MO.) 05/07/2020 04:28 [facility] [place] TYPE: Emergency COMPLAINT: - BLOOD IN STOOL 08/11/2019 09:11 [facility] [place] TYPE: Emergency COMPLAINT: - BLOOD SUGAR PROBLEM DIAGNOSES: - Type 2 diabetes mellitus with hyperglycemia - Personal history of nicotine dependence - roasterman (current) use of insulin - Other terminal computer operator (current) drug therapy - Allergy status to narcotic agent - Allergy status to sulfonamides - Allergy status to analgesic agent - Essential (primary) hypertension - Type 2 diabetes mellitus with hyperglycemia - Urinary tract infection, site not specified INPATIENT VISIT TRACKING (12 MO.) No inpatient visits to display in this time frame [id number]
== END 2020-05-07 06:23 | disposition home or self-care (01) ==
LOC: ED 04:27
DX: N50.89 Other specified disorders of the male genital organs (principal); E11.9 Type 2 diabetes mellitus without complications; I10 Essential (primary) hypertension; Z87.891 Personal history of nicotine dependence; Z88.2 Allergy status to sulfonamides; Z88.6 Allergy status to analgesic agent; Z88.5 Allergy status to narcotic agent; Z79.899 Other long term (current) drug therapy; Z79.4 Long term (current) use of insulin
CPT/HCPCS: 80053; 85025; 85610; 85730; 86850; 86900; 86901; 99285

== ENCOUNTER 2020-08-04 09:07 | Emergency (ER) | payer MEDICARE, OTHER ==
[~2020-08-04] VITALS: Ht 170.2 cm; Wt 81.3 kg
[~2020-08-04 09:07] MED LIST changes: -VITAMIN D1000 UNIT PO; +VITAMIN D325 MCG PO
--- OUTSIDE RECORDS SUMMARY | 2020-08-04 09:10 | XMS ---
PreManage Notification: CRISTA JUDD Security Environmental Services Worker Events No recent Security Events currently on file CRITERIA MET - Group Notification - [facility] - Has Care Guidelines CARE PROVIDERS TARUN JACINTO Internal Medicine Current PHONE: [phone] Michaela has no Care Guidelines for this patient. Care History Medical/Surgical 08/13/2019 [facility] - Patient is currently established with [facility]. If patient is seen in the ED during business hours. Please contact CHWs at [facility]. Care Recommendation: If this [...] exercise clinical judgment when providing care. 08/13/2019 [facility] Patient has ED follow up apt 08/16/2019 at 11:00 am with REN Machuca. Stanley VISIT COUNT (12 MO.) 3 DAVIE Mejia TOTAL 3 NOTE: Visits indicate total known visits. ED/UCC VISIT TRACKING (12 MO.) 08/04/2020 09:08 [facility] TYPE: Emergency COMPLAINT: - ALTERED LOC 05/07/2020 04:28 [facility] [place] TYPE: Emergency COMPLAINT: - BLOOD IN STOOL DIAGNOSES: - Allergy status to analgesic agent - Allergy status to narcotic agent - Personal history of nicotine dependence - Melena - Other specified disorders of the male genital organs - Allergy status to sulfonamides - Essential (primary) hypertension - Type 2 diabetes mellitus without complications - Other fpc (current) drug therapy - assistant terminal manager (current) use of insulin 08/11/2019 09:[address] [facility] [place] TYPE: Emergency COMPLAINT: - BLOOD SUGAR PROBLEM DIAGNOSES: - Type 2 diabetes mellitus with hyperglycemia - Personal history of nicotine dependence - jail (current) use of insulin - Other fpc (current) drug therapy - Allergy status to narcotic agent - Allergy status to sulfonamides - Allergy status to analgesic agent - Essential (primary) hypertension - Type 2 diabetes mellitus with hyperglycemia - Urinary tract infection, site not specified INPATIENT VISIT TRACKING (12 MO.) No inpatient visits to display in this time frame [id number]
[2020-08-04] MEDS ORDERED: HUMALOG100 UNIT/2 SUB-Q (09:14)
[2020-08-04] MEDS ORDERED: INVOKANA100 MG PO (09:15)
[2020-08-04] MEDS ORDERED: NYSTATIN15 G1 TOP (09:20)
[2020-08-04] MEDS ORDERED: PRAVASTATIN SOD20 MG PO (09:21)
--- NOTE | 2020-08-04 15:02 | EKG ---
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
== END 2020-08-04 12:00 | disposition home or self-care (01) ==
LOC: ED 09:07
DX: E86.0 Dehydration (principal); E11.9 Type 2 diabetes mellitus without complications; I10 Essential (primary) hypertension; Z87.891 Personal history of nicotine dependence; Z88.2 Allergy status to sulfonamides; Z88.6 Allergy status to analgesic agent; Z88.5 Allergy status to narcotic agent; Z88.8 Allergy status to other drugs, medicaments and biological substances; Z79.4 Long term (current) use of insulin; Z79.899 Other long term (current) drug therapy
CPT/HCPCS: 36415; 51701; 71045; 80053; 81001; 85025; 93005; 93010; 99285-25; J7030

== ENCOUNTER 2020-09-28 16:38 | Inpatient (IN) | payer MEDICARE, OTHER ==
[~2020-09-28] VITALS: Ht 170.2 cm; Wt 73.8 kg
[~2020-09-28 16:38] MED LIST changes: +HUMALOG100 UNIT/2 SUB-Q; +INVOKANA100 MG PO; +NYSTATIN15 G1 TOP; +PRAVASTATIN SOD20 MG PO
--- OUTSIDE RECORDS SUMMARY | 2020-09-28 16:44 | XMS ---
PreManage Notification: CRISTA JUDD Security Funeral Director/Embalmer Events No recent Security Events currently on file CRITERIA MET - [facility] - Has Care Guidelines - Group Notification CARE PROVIDERS TAURN JACINTO Internal Medicine Current PHONE: [phone] Michaela has no Care Guidelines for this patient. Care History Medical/Surgical 08/13/2019 [facility] - Patient is currently established with [facility]. If patient is seen in the ED during business hours. Please contact CHWs at [facility]. Care Recommendation: If this patient has had 5 or more Emergency Department visits in the last 12 months.\T\nbsp; Patient will require education on the scope and purpose of the ED as an acute care provider not a Primary Care Provider and should not be utilized for chronic conditions.\T\nbsp; These are guidelines and the provider should exercise clinical judgment when providing care. 08/13/2019 [facility] Patient has ED follow up apt 08/16/2019 at 11:00 am with REN Machuca. [place] VISIT COUNT (12 MO.) 3 DAVIE Mejia TOTAL 3 NOTE: Visits indicate total known visits. ED/UCC VISIT TRACKING (12 MO.) 09/28/2020 16:39 [facility] [place] TYPE: Emergency COMPLAINT: - CONFUSION 08/04/2020 09:08 [facility] [place] TYPE: Emergency COMPLAINT: - ALTERED LOC DIAGNOSES: - Other snf (current) drug therapy - Personal history of nicotine dependence - Altered mental status, unspecified - Allergy status to narcotic agent - Type 2 diabetes mellitus without complications - Allergy status to other drugs, medicaments and biological substances - Allergy status to sulfonamides - Essential (primary) hypertension - retirement (current) use of insulin - Dehydration - Allergy status to analgesic agent 05/07/2020 04:[address] [facility] [place] TYPE: Emergency COMPLAINT: - BLOOD IN STOOL DIAGNOSES: - Allergy status to analgesic agent - Allergy status to narcotic agent - Personal history of nicotine dependence - Melena - Other specified disorders of the male genital organs - Allergy status to sulfonamides - Essential (primary) hypertension - Type 2 diabetes mellitus without complications - Other roasterman (current) drug therapy - retirement (current) use of insulin INPATIENT VISIT TRACKING (12 MO.) No inpatient visits to display in this time frame [id number]
[2020-09-28] MEDS ORDERED: INVOKANA100 MG PO (17:23)
[2020-09-28] MEDS ORDERED: PROSCAR5 MG PO (17:23)
[2020-09-28] MEDS ORDERED: FLOMAX0.4 MG PO (17:25)
--- NOTE | 2020-09-28 20:25 | NUR ---
pt ARRIVES TO [facility] FLOOR VIA STRETCHER. SHIVERING. WARM BLANKET PROVIDED. VSS. SPO2 100% ON RA. PRIMARY RN ALISSA IN ROOM.
--- NOTE | 2020-09-28 20:57 | NUR ---
PHONE CALL FROM PATIENT'S DAUGHTER YAA. UPDATED THAT PATIENT HAS BEEN ADMITTED TO [facility] FLOOR ROOM 115. DAUGHTER WILL UPDATE PATIENT'S . THEY LIVE TOGETHER AT [facility]. PATIENT AMBULATES WITH WALKER, IS INCONTINENT OF URINE, RECENTLY HAS SEEN UROLOGIST AND STARTED ON FLOMAX. EDUCATED DAUGHTER ON PLAN OF CARE, TRANSITION TO MS, MEDICATION RECONCILIATION PROCESS. DAUGHTER GIVEN MS DIRECT NUMBER REQUESTED. STATES PATIENT DOES NOT AT BASELINE KNOW MEDICATIONS OR ALLERGIES, HANDLES IT.
--- NOTE | 2020-09-28 23:33 | NUR ---
PATIENT IN BED AND ADMIT ASSESSMENT COMPLETE. PATIENT CAN TALK IN SORT 1-2 WORD SENTENCES, BUT STILLIS MUMBLING A GREAT DEAL. PATIENT FOLLOWS COMMANDS JUST FINE. WET ATTENDS TAKEN OFF PATIENT AFTER ARRIVAL TO MED/SURG AND CHUX AND NEW ATTENDS IN PLACE. PATIENT DID VOID IN THE URINAL WHILE IN BED. PATIENT DRANK SOME JUICE AND ATE A GRANOLA BAR AFTER ARRIVAL AND HAVING A BLOOD SUGAR OF 73. PATIENT'S IV INFUSING WNL AND PATIENT GIVEN WARM BLANKETS HE SAID HE WAS COLD ON ARRIVAL. PATIENT RESTING QUIETLY ON HIS LEFT SIDE, RESPIRATIONS REGULAR AND EVEN. CALL LIGHT IN REACH AND BED ALARM ON.
--- NOTE | 2020-09-29 00:02 | NUR ---
PATIENT MOVED HIMSELF UP IN BED WHILE RADHA LEWIS CHANGED PATIENT'S IV FLUIDS TO 100ML/HR FROM THE BOLUS DOSE THAT JUST COMPLETED. PATIENT WAS SHOWN HOW TO USE HIS CALL LIGHT AGAIN BY RADHA LEWIS. PATIENT'S LIGHTS TURNED DOWN AND PATIENT'S CALL LIGHT IS IN REACH.
--- NOTE | 2020-09-29 01:00 | NUR ---
PATIENT RESTING QUIETLY ON HIS RIGHT SIDE, RESPIRATIONS ARE REGULAR AND EVEN, CALL LIGHT IS IN REACH.
--- NOTE | 2020-09-29 02:08 | NUR ---
PATIENT'S BED ALARM SOUNDED AND THIS RN AND RADHA LEWIS WENT IN AND PATIENT WAS INCONTINENT. PATIENT WASHED UP, GOWN CHANGED, FRESH ATTENDS IN PLACE, AND BED ALARM BACK ON AFTER MOVING PATIENT UP IN BED. PATIENT GIVEN WARM BLANKETS AND TUCKED BACK IN. CALL LIGHT IN REACH. PATIENT DENIED ANY OTHER CARE NEEDS AT THIS TIME.
--- NOTE | 2020-09-29 04:14 | NUR ---
PATIENT RESTING QUIETLY ON HIS RIGHT SIDE, EYES ARE CLOSED, RESPIRATIONS ARE REGULAR AND EVEN, CALL LIGHT IN REACH AND BED ALARM ON.
--- NOTE | 2020-09-29 05:08 | NUR ---
PATIENT INCONTINENT URINE AGAIN FOR THE THIRD TIME THIS SHIFT. PATIENT WAS ABLE TO VOID 200MLS IN THE URINAL AND HIS ATTENDS WERE CHANGED AND PATIENT PULLED HIMSELF UP IN BED. PATIENT IS MUCH STRONGER NOW THAN HE WAS WHEN HE CAME IN AND IS MORE RESPONSIVE AND TRYING TO COMMUNICATE MORE. PATIENT AM LABS WERE DRAWN AND AM ASSESSMENT COMPLETE. CALL LIGHT IS IN REACH AND BED ALARM ON.
--- NOTE | 2020-09-29 06:42 | NUR ---
PATIENT INCONTINENT THE 4TH TIME THIS SHIFT AND ATTENDS CHANGED AND PATIENT WASHED UP. PATIENT DID MANAGE TO VOID 200MLS IN THE URINAL. PATIENT IS MORE ALERT AND MORE COMMUNICATIVE. PULLED HIMSELF UP IN BED. ASKED WHERE HIS WAS AND WHAT WAS GOING ON. INFORMED THE PATIENT AGAIN WHERE HE WAS AND WHAT WAS HAPPENING. PATIENT NODDED THAT HE UNDERSTOOD. CALL LIGHT IS IN REACH BED ALARM ON.
--- NOTE | 2020-09-29 07:38 | NUR ---
REPORT RECIEVED FROM OBSTETRICS NURSE PRACTITIONER RNALISSA.
--- NOTE | 2020-09-29 08:38 | NUR ---
MORNING ASSESSMENT DONE. PATIENT IS SITTING UP TO SIDE OF BED TO EAT BREAKFAST. BLOOD GLUCOSE IS 109 WITH NO COVERAGE. PATIENT ATE 75% OF BREAKFAST, PRODUCTIVE SOUNDING COUGH, O2 SATS ARE 100% ON ROOM AIR. MORNING MEDICATIONS GIVEN. PATIENT HAS GARBLED SPEECH AND IS DIFFICULT TO UNDERSTAND. ATTENDS CHANGED FOR INCONTINENCE, PATIENT ALSO VOIDED 100ML OF CLEAR URINE TO URINAL. PATIENT DENIES OTHER NEEDS, DID NOT WANT TO LAY DOWN AFTER BREAKFAST, CONTINUES TO SIT AT BEDSIDE WITH BED ALARM OR. 30MG LOVENOX WASTED IN ROOM DUE TO DOCTOR CHANGING DOSE.
[2020-09-29] MEDS ORDERED: METFORMIN HCL500 MG PO (09:21)
--- NOTE | 2020-09-29 09:24 | NUR ---
Medications reconciled using pharmacy records and MARs from Darinel Cotton
--- NOTE | 2020-09-29 09:30 | NUR ---
DR. REDDY REQUEST DISCUSSION WITH [facility] REGARDING PATIENTS DISCHARGE. PER STAFF AT [facility] IN [facility] UNTIL AFTER 1300. WILL RETURN CALL TO SPEAK WITH ELIZABETH AT THAT TIME. EBONIE TERRELL RN AND OLGA JOHNSON RN NOTIFIED.
--- NOTE | 2020-09-29 09:37 | NUR ---
PATIENT SALINE LOCKED TO WORK WITH PHYSICAL THERAPY, ONE PERSON ASSIST WITH FWW TO COUCH AND AROUND ROOM. NO NEEDS NOTED AT THIS TIME.
--- NOTE | 2020-09-29 10:52 | NUR ---
OCCUPATIONAL THERAPY IN TO SEE PATIENT. CONVERSATION WITH PATIENT ABOUT HOW PHYSICAL THERAPY WENT EARLIER, PATIENT VERBALIZED THAT THERAPY WENT WELL. TALKED TO PATIENT ABOUT HAVING HIS DAUGHTER PRESENT VIA PHONE WHEN DR. REDDY ROUNDS AND PATIENT THOUGHT THAT WAS A GOOD IDEA.
--- NOTE | 2020-09-29 12:08 | NUR ---
PATIENT SITTING UP AT BEDSIDE AND AWAITING LUNCH, 3 UNITS OF SQ INSULIN TO RIGHT ARM. NO OTHER NEEDS AT THIS TIME.
--- NOTE | 2020-09-29 12:30 | NUR ---
ATTEMPTED CONTACT ELIZABETH MISSILE MECHANIC AT [facility]. PER STAFF ELIZABETH IS STILL IN A MEETING AT THIS TIME. WILL ATTEMPTED TO CONTACT [facility] AFTER 1300.
--- NOTE | 2020-09-29 13:29 | NUR ---
PATIENT IS SLEEPING WITH REGULAR RESPIRATIONS.
--- NOTE | 2020-09-29 13:45 | NUR ---
SPOKE TO ELIZABETH AT [facility]. BASELINE EVALUATED AND CASE MANAGEMENT ASSESSMENT COMPLETED WITH HER ASSISTANCE. PATIENT LIVES AT [facility] IN AN APARTMENT WITH HIS . ELIZABETH STATES THAT PATIENT DOES REQUIRE SOME ASSISTANCE WITH BATHING AND DRESSING FROM HIS OR STAFF. PATIENT IS ABLE TO AMBULATE TO THE DINING ROOM FOR MEALS. ELIZABETH TO CHECK WITH THE STATE TO SEE IF PATIENT IS ABLE TO RETURN TODAY AND RETURN MY CALL.
--- NOTE | 2020-09-29 14:16 | NUR ---
AFTERNOON VITALS AND I/O DONE. PATIENT IS RESTING IN BED AND DENIES OTHER NEEDS AT THIS TIME.
[2020-09-29] MEDS ORDERED: CEFPODOXIME PR200 MG PO (14:19)
--- NOTE | 2020-09-29 14:32 | NUR ---
PATIENT'S DAUGHTER CALLED, UPDATED HER ON HOW WELL HER FATHER IS DOING. DISCUSSED HER FATHER GOING HOME, DR. REDDY IS HAVING FURTHER CONVERSATION WITH DAUGHTER.
--- NOTE | 2020-09-29 14:44 | NUR ---
Dr Herrera and Derek Rice to my office. Would like clarification of baseline and to know if the state has authorized for pt to return to [facility] today. Called and spoke with the Speech Assistant. Updated pt is running words together per RN and having some difficulty with his speech. She states this is not baseline. She states pt is able to speak clearly, he has dementia and may answer with the wrong word. Dr. Herrera states he will keep pt one more day and have evaluated by speach therapy. If ST can eval today, plan for dc to [facility] in am tomorrow. Spoke with Chicho Nelson for OP therapy and he will request ST see this pt tonight when they finish at the [facility].
--- NOTE | 2020-09-29 15:09 | NUR ---
Notified by special agent in charge, ST will see pt tomorrow AM. Updated I have not heard from [facility] if the state has authorized for pts return as they are under executive order due to Covid in their building.
--- NOTE | 2020-09-29 15:26 | NUR ---
PATIENT SLEEPING WITH REGULAR RESPIRATIONS. PATIENT TO HAVE SPEECH THERAPY EVALUATION TOMORROW MORNING, PER DISK GRINDER.
--- NOTE | 2020-09-29 15:33 | NUR ---
PATIENT UP TO BATHROOM TO VOID, ONE PERSON ASSIST.
--- NOTE | 2020-09-29 18:08 | NUR ---
PATIENT UP TO BATHROOM 1PA FWW. PATIENT VERY SHAKEY WHEN WALKING, MORE THEN BEFORE, RN NOTIFIED. PATIENT BACK TO BED. VITALS TAKEN AND FINE, RN NOTIFIED. NEW GOWN GIVEN. CALL LIGHT IN REACH. NO FURTHER NEEDS AT THIS TIME,.
--- NOTE | 2020-09-29 19:20 | NUR ---
SHIFT REPORT FROM NURSE ABDIRAHMAN. PT HAD JUST SET OFF BED ALARM REQUESTING TO USE TOILET. ALBERTO MHOAMUD IN TO ASSIST PT. PT THEN RETURNED TO BED. PT WITHIN VIEW OF NURSES STATION.
--- NOTE | 2020-09-29 21:30 | NUR ---
V/S AND I&O' DONE. BLOOD SUGAR CHECK DONE. PRIMARY RN DEBBIE WAS WITH PATIENT.
--- NOTE | 2020-09-29 21:43 | NUR ---
IN ROOM FOR ASSESSMENT AND BS CHECK. CBG 171 REQURIRING 1UNIT INSULIN. PT WAS UP TO TOILET TO VOID; MOST OF VOID GOES IN DEPENDS PT WALKS BUT PT IS ABLE TO GET SOME URINE IN THE HAT. NEW GOWN AND BED LINENS PROVIDED D/T INCONTINENCE. BP SLIGHTLY ELEVATED AT 166 SYSTOLICALLY. WILL CONTINUE TO MONITOR. LUNG SOUNDS HAVE EXPIRATORY WHEEZE; SPO2 100% RA. BOWEL TONES ACTIVE. PT RETURNED TO BED, CALL LIGHT WITHIN REACH, BED ALARM ON FOR SAFETY.
--- NOTE | 2020-09-29 22:15 | NUR ---
CALL BACK TO PT'S DAUGHTER/POA WHO HAD CALLED FOR AN UPDATE. PT'S DAUGHTER UPDATED; PT'S DAUGHTER WOULD LIKE TO HAVE PT RETESTED FOR COVID PRIOR TO RETURN TO [facility]. THIS RN WILL PASS INFO ON TO DAY NURSE THIS WOULD BE HANDLED BEFORE PT'S DISCHARGE IN AM.
--- NOTE | 2020-09-29 23:16 | NUR ---
BED ALARM WENT OFF. PATIENT GOT UP. THIS [employer] WENT IN. 1 PA TO THE BATHROOM AND BACK TO BED. PULL UPS WET AND HAD SMALL SOFT BOWEL MOVEMENT. NO OTHER NEEDS AT THIS TIME. BED ALARM ON.
--- NOTE | 2020-09-30 03:30 | NUR ---
BED ALARMING. PATIENT GOT UP. 1 PA TO THE BATHROOM. PATIENT IS INCONTINENT. CHANGED SOCKS, GOWN AND PULL UPS. PATIENT IS BACK IN BED. BED ALARM ON.
--- NOTE | 2020-09-30 06:26 | NUR ---
IN ROOM FOR MORNING ASSESSMENT AND VITALS. PT WAS ASLEEP THIS NURSE ENTERS ROOM. PT HAD BEEN INCONTINENT OF URINE. VSS. LUNG SOUNDS CLEAR. BOWEL TONES ACTIVE. CMS INTACT. PT DID NOT SPEAK WHILE THIS NURSE IN THE ROOM BUT DOES FOLLOW COMMANDS; APPEARS DROWSY. DEPENDS CHANGED. PT REPOSITTIONED. BED ALARM ON FOR SAFETY. CALL LIGHT WITHIN REACH.
--- NOTE | 2020-09-30 09:00 | NUR ---
Pt was seen by ST and cleared for dc to go home to [facility] with . Attempted to contact [facility] by phone x 3 and no answer.
--- NOTE | 2020-09-30 09:49 | NUR ---
REATTACHED TO IVF. ADMINISTERED MORNING MEDS. 1 UNIT INSULIN GIVEN. PT ASKED FOR COFFEE. LUNGS CLEAR. HR REGULAR WITH MURMUR. PT ANSWERS QUESTIONS APPROPRIATLY. FOLLOWS DIRECTIONS. DENIES PAIN OR DISCOMFORT. OT IN ROOM.
--- NOTE | 2020-09-30 10:07 | NUR ---
PATIENT WORKED WITH PT, OT, AND ST AT THIS TIME. VITALS AND I&O'S CHARTED. FRESH WATER AND COFFEE GIVEN. CALL LIGHT IN REACH. NO FURTHER NEEDS AT THIS TIME.
--- NOTE | 2020-09-30 10:45 | NUR ---
Multiple attempts to contact [facility] by phone. No Answer. Dr. Herrera updated.
--- NOTE | 2020-09-30 11:39 | NUR ---
Unable to contact Lam, faxed to following note asking they contact this RN in DC planning. September 30, 2020 Lam Cotton This is Mariia from Case Management at the hospital. I have been attempting to contact you since this morning. Your patient, Neto Vasques, is ready for discharge. I have a packet ready with his H&P, Discharge Summary, and PT khris completed this am. Could someone please call me so this patient can return to you. Thanks, Mariia Personal Vehicle Advisor planning [phone]
--- NOTE | 2020-09-30 13:10 | NUR ---
Was able to contact [facility] after multiple attempts. Pt may return. Updated I faxed her the new orders, H&P, and dc summary. She has seen them and pt may return whenever. Called [facility], who will transport Covid+ pts. They do not have any openings. Called Antonia Little in Admin and she states we may use facilities. CAlled Gato Thomas and he will have a wrecker driver when pt is ready for dc.
--- NOTE | 2020-09-30 13:45 | NUR ---
Facilities stopped by my office and they are getting the care ready. Rn aware and pt ready. Called and asked she meet facilities in the ambulance bay area and they will transport per covid protocol.
--- NOTE | 2020-09-30 14:01 | NUR ---
IV TAKEN OUT UPON RN REQUEST. CATH INTACT AND LOOKED GOOD, RN NOTIFIED.
--- NOTE | 2020-09-30 14:01 | NUR ---
Face sheet, Order for PT/OT/ST, Med list, H&P, DC summary, addendum with F2F faxed to [facility] per pts preference.
[2020-09-30] MEDS ORDERED: LOSARTAN POTAS100 MG PO (14:58)
== END 2020-09-30 14:00 | disposition home or self-care (01) | DRG 177 ==
LOC: ED 16:38 → MS 19:19
PROVIDERS: ADMIT Student in an Organized Health Care Education/Training Program; ATTEND Student in an Organized Health Care Education/Training Program
DX: U07.1 COVID-19 (principal); J12.82 Pneumonia due to coronavirus disease 2019; G93.41 Metabolic encephalopathy; N39.0 Urinary tract infection, site not specified; N17.9 Acute kidney failure, unspecified; R47.01 Aphasia; Z66 Do not resuscitate; E86.0 Dehydration; F03.90 Unspecified dementia, unspecified severity, without behavioral disturbance, psychotic disturbance, mood disturbance, and anxiety; N40.0 Benign prostatic hyperplasia without lower urinary tract symptoms; I10 Essential (primary) hypertension; K21.9 Gastro-esophageal reflux disease without esophagitis; E11.9 Type 2 diabetes mellitus without complications; E78.5 Hyperlipidemia, unspecified; Z87.891 Personal history of nicotine dependence; Z88.5 Allergy status to narcotic agent; Z88.2 Allergy status to sulfonamides; Z88.8 Allergy status to other drugs, medicaments and biological substances; Z79.4 Long term (current) use of insulin; Z79.899 Other long term (current) drug therapy
CPT/HCPCS: 70450; 71045; 80048; 80053; 80061; 81001; 83735; 84484; 85025; 87088; 92610; 97116; 97161; 97165; 97530; 97535; 99285-25; J0696; J1650; J1815; J7030; J7121; M0245

== ENCOUNTER 2020-10-16 18:44 | Emergency (ER) | payer MEDICARE, OTHER ==
[~2020-10-16] VITALS: Ht 170.2 cm; Wt 73.6 kg
[~2020-10-16 18:44] MED LIST changes: +CEFPODOXIME PR200 MG PO; +FLOMAX0.4 MG PO; +METFORMIN HCL500 MG PO; +PROSCAR5 MG PO
--- OUTSIDE RECORDS SUMMARY | 2020-10-16 18:52 | XMS ---
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 Care History Medical/Surgical 08/13/2019 [facility] - Patient is currently established with [facility]. If patient is seen in the ED during business hours. Please contact CHWs at [facility]. Care Recommendation: If this patient has had 5 or more Emergency Department visits in the last 12 months.\T\nbsp; Patient will require education on the scope and purpose of the ED as an acute care provider not a Primary Care Provider and should not be utilized for chronic conditions.\T\nbsp; These are guidelines and the provider should exercise clinical judgment when providing care. 08/13/2019 [facility] Patient has ED follow up apt 08/16/2019 at 11:00 am with PCP. Stanley Machuca VISIT COUNT (12 MO.) [address] [facility] TOTAL 4 NOTE: Visits indicate total known visits. ED/UCC VISIT TRACKING (12 MO.) 10/16/2020 18:45 [facility] TYPE: Emergency COMPLAINT: - SYNCOPE 09/28/2020 16:39 [facility] TYPE: Emergency COMPLAINT: - CONFUSION 08/04/2020 09:08 [facility] TYPE: Emergency COMPLAINT: - ALTERED LOC DIAGNOSES: - Other custodial (current) drug therapy - Personal history of nicotine dependence - Altered mental status, unspecified - Allergy status to narcotic agent - Type 2 diabetes mellitus without complications - Allergy status to other drugs, medicaments and biological substances - Allergy status to sulfonamides - Essential (primary) hypertension - jail (current) use of insulin - Dehydration - Allergy status to analgesic agent 05/07/2020 04:28 [facility] TYPE: Emergency COMPLAINT: - BLOOD IN STOOL DIAGNOSES: - Allergy status to analgesic agent - Allergy status to narcotic agent - Personal history of nicotine dependence - Melena - Other specified disorders of the male genital organs - Allergy status to sulfonamides - Essential (primary) hypertension - Type 2 diabetes mellitus without complications - Other custodial (current) drug therapy - manager terminal (current) use of insulin INPATIENT VISIT TRACKING (12 MO.) 09/28/2020 19:[address] [facility] TYPE: Medical Surgical COMPLAINT: - COVID ALTERED MENTAL STATUS DIAGNOSES: - manager terminal (current) use of insulin - Aphasia - Urinary tract infection, site not specified - Urinary tract infection, site not specified - Benign prostatic hyperplasia without lower urinary tract symptoms - Do not resuscitate - Do not resuscitate - Acute kidney failure, unspecified - Personal history of nicotine dependence - Aphasia - Allergy status to other drugs, medicaments and biological substances - Type 2 diabetes mellitus without complications - Benign prostatic hyperplasia without lower urinary tract symptoms - Unspecified dementia without behavioral disturbance - Allergy status to narcotic agent - Personal history of nicotine dependence - jail (current) use of insulin - Metabolic encephalopathy - Allergy status to narcotic agent - Hyperlipidemia, unspecified - Gastro-esophageal reflux disease without esophagitis - Acute kidney failure, unspecified - Essential (primary) hypertension - Essential (primary) hypertension - Gastro-esophageal reflux disease without esophagitis - Type 2 diabetes mellitus without complications - Metabolic encephalopathy - Other custodial (current) drug therapy - Allergy status to other drugs, medicaments and biological substances - COVID-19 - Allergy status to sulfonamides - Unspecified dementia without behavioral disturbance - 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
[2020-10-17] MEDS ORDERED: METOPROLOL SUCC50 MG PO (05:58)
[2020-10-17] MEDS ORDERED: DILTIAZEM HCL120 MG PO (05:58)
--- NOTE | 2020-10-18 13:58 | EKG ---
[facility] [address] 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 rate has decreased BY [address] no longer depressed in Lateral leads Confirmed by MEL REDDY DO ([id number]) on 10/18/2020 1:58:11 PM Electronically Signed By: MEL REDDY DO 10/18/20 1358 PATIENT NAME: CRISTA JUDD Electrocardiogram DATE OF : 32 PHYSICIAN: MEL REDDY DO REPORT #: [id number] REPORT IS CONFIDENTIAL AND NOT TO BE RELEASED WITHOUT AUTHORIZATION
== END 2020-10-17 08:35 | disposition home or self-care (01) ==
LOC: ED 18:44
DX: U07.1 COVID-19 (principal); R00.1 Bradycardia, unspecified; T46.1X5A Adverse effect of calcium-channel blockers, initial encounter; T44.7X5A Adverse effect of beta-adrenoreceptor antagonists, initial encounter; E11.22 Type 2 diabetes mellitus with diabetic chronic kidney disease; I12.9 Hypertensive chronic kidney disease with stage 1 through stage 4 chronic kidney disease, or unspecified chronic kidney disease; K21.9 Gastro-esophageal reflux disease without esophagitis; N18.9 Chronic kidney disease, unspecified; E78.5 Hyperlipidemia, unspecified; Z88.2 Allergy status to sulfonamides; Z88.6 Allergy status to analgesic agent; Z88.5 Allergy status to narcotic agent; Z88.8 Allergy status to other drugs, medicaments and biological substances; Z79.899 Other long term (current) drug therapy; Z79.4 Long term (current) use of insulin
CPT/HCPCS: 71045; 80053; 81001; 83735; 84484; 85025; 99284-25; C9803; U0003